=== PATIENT | female | born 1945 | race Caucasian/White ===

== ENCOUNTER 2019-11-15 08:05 | Emergency (ER) | payer MEDICARE, OTHER ==
[~2019-11-15] VITALS: Ht 165.1 cm; Wt 80.0 kg
[~2019-11-15 08:05] MED LIST: DULO30CA2 PO; ESOM40CA PO; METH4TAB2 PO; OLAN5TAB3 PO; RALO60TA PO; SUMA50TA3 PO
[2019-11-15 08:28] LABS: BGAS PH 7.37 (7.35-7.45)
--- NOTE | 2019-11-15 08:28 | PHYS DOC ---
Past History Past Medical History: Migraines, Other Past Surgical History: Other Smoking: Cigarettes Alcohol Use: None Drug Use: None General Adult EDM: Chief Complaint: ALTERED MENTAL STATUS HPI: HPI: Patient is a 74 yo f biba ams had hip surgery Apparently over the last 24 hours patient has become more confused not following commands as well at home blood pressure was 60/30 for the paramedics. Patient has a history of polymyalgia rheumatica takes prednisone daily had hip surgery after a fall on October 17 had a hip repair was unstable in the operating room thought related to some sort of a cement complication possibly pulmonary hypertension from the cement. She improved and stabilized and was discharged she now is home with daughter daughter tells me that she is a DO NOT RESUSCITATE she showed me the power of immigration attorney. Additional past medical history includes asthma A. fib with RVR anemia chronic kidney disease depression diverticulosis baseline creatinine was a 1.0 at admission last month. History of arthritis history of N STEMI history of migraine long history multiple previous surgical history as well medications amiodarone Eliquis iron Lasix Xanax albuterol [place] but she has not taken it since yesterday lisinopril prednisone she is currently on 30 mg a day but did not take it since yesterday. Allergic to sulfa and iodine. Review of Systems: Review of Systems: galloway by pain. Heart Score: Risk Factors: Risk Factors: DM, Current or recent (<one month) smoker, HTN, HLP, family history of CAD, obesity. Risk Scores: Score 0 - 3: 2.5% MACE over next 6 weeks - Discharge Home Score 4 - 6: 20.3% MACE over next 6 weeks - Admit for Clinical Observation Score 7 - 10: 72.7% MACE over next 6 weeks - Early Invasive Strategies Current Medications: Current Meds: Current Medications Medications (Trade) Dose Ordered Sig/[place] Start Time Stop Time Status Last Admin Dose Admin Sodium Chloride 2,400 ml @ 2,400 mls/hr Q1H 11/15/19 08:30 UNV Vancomycin HCl (Vanco Per Pharmacy) 1 each PRN DAILY PRN 11/15/19 08:30 UNV Allergies: Allergies: Allergies Coded Allergies Type Severity Reaction Last Updated Verified iodine Allergy Severe 09/12/14 No adhesive tape Adverse Reaction Intermediate Rash 03/17/15 No Physical Exam: PE: Constitutional: Well developed, ill appearing. HENT: Normocephalic, atraumatic, bilateral external ears normal, oropharynx dry, no oral exudates, nose normal. [] Eyes: PERRLA, EOMI, conjunctiva normal, no discharge. [] Neck: Normal range of motion, no tenderness, supple, no stridor. [] Cardiovascular:Heart rate regular rhythm, no murmur [] Lungs & Thorax: Bilateral breath sounds clear to auscultation ANTERIORLY Abdomen: Bowel sounds normal, soft, no tenderness, no masses, no pulsatile masses. [] Skin: AREA of erythema induration noted right hip may be some fluctuance underlying the surgical incision. Back: No tenderness, no CVA tenderness. [] Extremities: No tenderness, no cyanosis, no clubbing, ROM intact, no edema. [] Neurologic EYES OPEN TO VOICE, DOES FOLLOW COMMANDS. Current Patient Data: Vital Signs: Afebrile hypotensive oxygen saturation is adequate on 2 L. EKG: EKG: [] Sinus rhythm rate of 85 QTC 480 no STEMI interpreted by me time of encounter. Radiology/Procedures: Radiology/Procedures: phenoid sinus probably mucous retention cyst or polyp. IMPRESSION: 1. No acute intracranial findings. 2. Left sphenoid sinus mucous retention cyst or polyp. Electronically signed by: Joe Dockery MD (11/15/2019 8:58 AM) [id number] [] Impression: 1. No acute osseous abnormality. 2. Possible right lateral gluteal subcutaneous gas although overlying structures degrades evaluation. If further clinical concern repeat radiographs with removal of external structures can further assess. 3. Right hip arthroplasty. 4. Advanced lower lumbar spondylosis. Electronically signed by: Lefty Guerrero DO (11/15/2019 8:58 AM) [id number] DICTATED AND SIGNED BY: LEFTY GUERRERO DO DATE: 11/15/19 0858 CC: ALEX GALVEZ MD; ENIO BLACK MD ~ Impressions: the upper lobes. Left basilar linear atelectasis or scarring, unchanged. Elevation the right hemidiaphragm. No pleural effusion. No pneumothorax. Normal heart size. Bilateral glenohumeral DJD. Impression: 1. Ill-defined patchy reticular opacities bilaterally, may represent infectious process including viral pneumonia. Electronically signed by: Lefty Guerrero DO (11/15/2019 8:54 AM) [id number] DICTATED AND SIGNED BY: LEFTY GUERRERO DO DATE: 11/15/19 0854 CC: ALEX GALVEZ MD; ENIO BLACK MD ~ Course & Med Decision Making: Course & Med Decision Making Pertinent Labs and Imaging studies reviewed. (See chart for details) [] 74-year-old female multiple medical problems polymyalgia rheumatica A. fib on Eliquis acute on chronic diastolic heart failure with history of pulmonary hypertension prior DVT and PE fibromyalgia multiple issues basically presenting with septic shock related to could be a combination of pneumonia and or wound infection. covid test ordered, pending, ppe worn throughout. d/w dr slade from [facility] transfer service, accepted patient. Patient remained stable while in the emergency room on 0.2 mics per kilogram per minute of levo fed. 116/46 with a map of 71 at 12:40 PM We did collect a wound culture we gave aggressive antibiotics Vanco and Zosyn CT head was negative chest x-ray showed possible viral pneumonia my read not classic for COVID it is on the differential that is pending. Dr. Rea Slade was notified about that. I do believe that the benefits of transfer for continuity of care outweigh any risks, also patient is hypotensive needs acute critical care services. Also will need nephrology consultation which we do not have available here. Also family request transfer back to the facility where surgery was performed which I think is extremely reasonable. Give 30 cc/kg of IV fluids and aggressive antibiotics in the emergency room Dragon Disclaimer: Dragon Disclaimer: This electronic medical record was generated, in whole or in part, using a voice recognition dictation system. Departure Departure: Impression: Primary Impression: Septic shock Additional Impression: Acute kidney injury Disposition: XF SHT-TRM HOSP Condition: GUARDED Justification of Admission: Justification of Admission: Justification of Admission Dx: Yes Sepsis: Hemodynamic Instability CENTRAL LINE PLACEMENT CENTRAL LINE PLACEMENT: Location: left femoral vein catheter indication septic shock poor iv access successful first attempt. sutured in place. Occupation of [employer] Faculty: Attending Physician PICC Plate Maker?: No Line exchanged over guidewire?: Yes Central Line Indications: Poor peripheral access Hand Hygiene Performed?: Yes Maximum Sterile Barriers Used: Mask, Sterile Gown, Sterile Gloves, Large Sterile Drape, Cap Skin Preperation: (Check All): Chlorhexidine Gluconate Prep dry @ Skin Puncture: Yes Patient < 2 months of age?: No Known allergy to CHG?: No Insertion Site: Femoral Antimicrobial Catheter Used?: Yes Central Line Catheter Type?: Non-tunneled Successful Placement?: Yes Sepsis Assessment Date and Time of Assessment Date: Nov 15, 2019 Time: 09:34 Vital Signs Vital Signs Vital Signs Date Time Temp Pulse Resp B/P (MAP) Pulse Ox O2 Delivery O2 Flow Rate FiO2 11/15/19 08:05 97.7 86 11 89/39 (56) 100 NonRebreather Mask 15.0 Respirations Respiratory Effort: Normal Respiratory Pattern: Normal Cardiovascular Pulse Rhythm: Regular HEART: Nml rate, reg. rhythm Lung Sounds Breath Sounds: Clear Capillary Refill Capillary Refill: Rt Foot < 3 seconds Peripheral Pulse Pulse Location: Radial Pulse Strength: Normal (2+) Pulse Assessment Method: Monitor Integumentary Skin: Warm, Dry (Patient's mental status is somewhat improved blood pressure is better) Critical Care Note Total Time (mins): 50 Comments For management of acute critical illness septic shock including discussion with consultants review of labs besdie care evaluation of treatments. ENIO BLACK MD Nov 15, 2019 08:28
[2019-11-15 08:30] LABS: BASO % 0 % (0-3); EOS % 0 % (0-3); HEMATOCRIT 30.1 % (36.0-47.0); HEMOGLOBIN 9.5 g/dL (12.0-15.5); LYMPH # 1.2 x10^3/uL (1.0-4.8); LYMPH % 13 % (24-48); MEAN CORPUSCULAR HEMOGLOBIN 25 pg (25-35); MEAN CORPUSCULAR HGB CONC 32 g/dL (31-37); MEAN CORPUSCULAR VOLUME 78 fL (79-100); MONO # 1.3 x10^3/uL (0.0-1.1); MONO % 14 % (0-9); NEUT % 73 % (31-73); PLATELET COUNT 252 x10^3/uL (140-400); RED BLOOD COUNT 3.84 x10^6/uL (3.50-5.40); RED CELL DISTRIBUTION WIDTH 17.7 % (11.5-14.5); WHITE BLOOD COUNT 9.6 x10^3/uL (4.0-11.0)
[2019-11-15] MEDS ORDERED: VANCOMYCIN PER PHARMACY MC PRN (08:30)
[2019-11-15] MEDS ORDERED: IV NORMAL SALINE 1,000ML 1,000 ML IV SCH (08:30)
[2019-11-15] MEDS ORDERED: NOREPINEPHRINE BITARTRATE 4 MG/4 ML VIAL. IV ONE (08:34)
[2019-11-15] MEDS ORDERED: IV NORMAL SALINE 250ML 250 ML ONE (08:35)
[2019-11-15 08:40] LABS: CALCIUM 9.4 mg/dL (8.5-10.1); GFR 6.9; POTASSIUM 4.4 mmol/L (3.5-5.1)
[2019-11-15] MEDS ORDERED: PIPERACILLIN/TAZOBACTAM 3.375 GM in IV NORMAL SALINE 50ML 50 ML IV ONE (08:45)
[2019-11-15 08:46] LABS: ALBUMIN 2.3 g/dL (3.4-5.0); ALBUMIN/GLOBULIN RATIO 0.8 (1.0-1.7); TOTAL BILIRUBIN 0.6 mg/dL (0.2-1.0); TOTAL PROTEIN 5.1 g/dL (6.4-8.2)
[2019-11-15] MEDS: NOREPINEPHRINE BITARTRATE 8 MG in IV DEXTROSE 5% 250 ML IV PRN ×2 (08:50→08:56)
--- NOTE | 2019-11-15 08:57 | RAD ---
CHEST AP ONLY History: Reason: altered mental / Spl. Instructions: / History: Comparison: September 12, 2014 Findings: Ill-defined patchy reticular opacities bilaterally most prominent within the upper lobes. Left basilar linear atelectasis or scarring, unchanged. Elevation the right hemidiaphragm. No pleural effusion. No pneumothorax. Normal heart size. Bilateral glenohumeral DJD. Impression: 1. Ill-defined patchy reticular opacities bilaterally, may represent infectious process including viral pneumonia. Electronically signed by: Lefty Guerrero DO (11/15/2019 8:54 AM) [id number]
[2019-11-15] MEDS ORDERED: IV NORMAL SALINE 50ML 50 ML ONE (09:00)
[2019-11-15] MEDS ORDERED: PIPERACILLIN/TAZOBACTAM 3.375 GM VIAL IV ONE (09:00)
[2019-11-15] MEDS ORDERED: VANCOMYCIN 2 GM in IV NORMAL SALINE 500ML 500 ML IV ONE (09:00)
[2019-11-15] MEDS ORDERED: methylPREDNISolone SOD SUCC PF 125 MG/2 ML VIAL. IV ONE (09:00)
--- NOTE | 2019-11-15 09:01 | RAD ---
HIP RIGHT 1 VIEW WITH PELVIS History: Reason: altered mental / Spl. Instructions: / History: Technique: AP view the pelvis and 2 additional views of the right hip. Comparison: CT March 17, 2015 Findings: Right hip arthroplasty. Normal alignment of the hip. No fracture. Advanced lower lumbar spondylosis and postoperative changes. Left inguinal femoral catheter with tip projecting over the left pelvis. Postop changes overlying the pelvis. Right lower quadrant ostomy. Possible right lateral luteal subcutaneous gas and overlying structures degrades evaluation. Impression: 1. No acute osseous abnormality. 2. Possible right lateral gluteal subcutaneous gas although overlying structures degrades evaluation. If further clinical concern repeat radiographs with removal of external structures can further assess. 3. Right hip arthroplasty. 4. Advanced lower lumbar spondylosis. Electronically signed by: Lefty Guerrero DO (11/15/2019 8:58 AM) [id number]
--- NOTE | 2019-11-15 09:01 | RAD ---
CT HEAD INDICATION: Altered mental status COMPARISON: None Available. Exposure: One or more of the following individualized dose reduction techniques were utilized for this examination: 1. Automated exposure control 2. Adjustment of the mA and/or kV according to patient size 3. Use of iterative reconstruction technique TECHNIQUE: 5 mm contiguous axial images were obtained from the skull base to the vertex in both bone and soft tissue algorithm. FINDINGS: No abnormal attenuation within the brain parenchyma. No evidence of acute intracranial hemorrhage. No extra-axial fluid collections. No mass effect or midline shift. Ventricular size is appropriate. Basal cisterns are patent. No fractures identified.Danielson-white differentiation is preserved.Globes and orbits are within normal limits. Complete opacification of the left sphenoid sinus probably mucous retention cyst or polyp. IMPRESSION: 1. No acute intracranial findings. 2. Left sphenoid sinus mucous retention cyst or polyp. Electronically signed by: Joe Dockery MD (11/15/2019 8:58 AM) [id number]
[2019-11-15 10:03] LABS: BACTERIA,URINE MANY /HPF (0-FEW); BILIRUBIN,URINE NEG (NEG); CLARITY,URINE CLOUDY; COLOR,URINE YELLOW; GLUCOSE,URINE NEG (NEG); NITRITE,URINE NEG (NEG); SQUAMOUS EPITHELIAL CELL,UR FEW /LPF; UROBILINOGEN,URINE 0.2 mg/dL (0.2 mg/dL)
[2019-11-15 10:04] LABS: HYALINE CASTS, URINE OCC /HPF
--- NOTE | 2019-11-15 13:11 | EKG ---
[address] [address] Test Date: 2019-11-15 Test Time: 08:54:56 Pat Name: KAL RYAN Department: Room: Gender: F Court Registry Officer: : [id number] Requested By: ENIO BLACK Order Number: [id number] Reading MD: Measurements Intervals [place] Rate: 85 P: 62 DE: 168 QRS: -34 QRSD: 112 T: 108 QT: 398 QTc: 480 Interpretive Statements SINUS RHYTHM ABNORMAL LEFT AXIS DEVIATION R-S TRANSITION ZONE IN V LEADS DISPLACED TO THE LEFT LEFT ANTERIOR FASCICULAR BLOCK T ABNORMALITY IN HIGH LATERAL LEADS PROLONGED QT ABNORMAL ECG RI6.02 No previous ECG available for comparison
[2019-11-15 13:30] VITALS: BP 108/52
[2019-11-15 16:43] LABS: % BANDS 3 % (0-9); % LYMPHS 16 % (24-48); % MONOS 5 % (0-10); % SEGS 76 % (35-66); ANISOCYTOSIS SLIGHT; HYPOCHROMIA SLIGHT; PLT ESTIMATE ADEQUATE (ADEQUATE)
--- NOTE | 2019-11-17 10:16 | NUR ---
IP: [facility]. Discussed with IP.
== END 2019-11-15 13:35 | disposition short-term general hospital (02) ==
LOC: ER 08:05
DX: A40.3 Sepsis due to Streptococcus pneumoniae (principal); R65.21 Severe sepsis with septic shock; Z20.818 Contact with and (suspected) exposure to other bacterial communicable diseases; N17.9 Acute kidney failure, unspecified; M25.551 Pain in right hip; G43.909 Migraine, unspecified, not intractable, without status migrainosus; F17.210 Nicotine dependence, cigarettes, uncomplicated; Z98.890 Other specified postprocedural states; Z88.2 Allergy status to sulfonamides
CPT/HCPCS: 36415; 36556; 51702; 70450; 71045; 73501; 80053; 81001; 82803; 83605; 84484; 85007; 85025; 87040; 87070; 87205; 93005; 96365; 96366; 96375; 99291; J2543; J2930; J3370; J7030; J7040; U0003